=== PATIENT | male | born 1945 | race African-American/Black ===

== ENCOUNTER 2017-02-17 10:27 | Observation (INO) | payer MEDICARE, MEDICAID ==
[~2017-02-17] VITALS: Ht 175.3 cm; Wt 80.7 kg
[2017-02-17] MEDS ORDERED: SODIUM CHLORIDE 0.9% 1,000 ML IV ONE (10:39)
[2017-02-17 10:51] LABS: BASOPHILS % 0.7 % (0.0-2.0); EOSINOPHILS % 0.8 % (0.0-5.0); HEMATOCRIT. 40.9 % (42.0-52.0); HEMOGLOBIN. 12.9 g/dL (14.0-18.0); LYMPHOCYTES % 30.8 % (20.0-50.0); MEAN CORPUSCULAR HEMOGLOBIN 24.4 pg (28.0-32.0); MEAN CORPUSCULAR VOLUME 77.3 fL (80.0-94.0); MEAN PLATELET VOLUME 8.5 fl (7.4-10.4); MONOCYTES % 6.9 % (2.0-8.0); NEUTROPHILS % 60.8 % (40.0-76.0); PLATELET 172 x1000/uL (130-400); RED BLOOD CELL COUNT 5.29 mill/uL (4.7-6.1); RED CELL DISTRIBUTION WIDTH 16.6 % (11.6-14.6)
[2017-02-17 11:07] LABS: CARBON DIOXIDE 28 mEq/L (21-32); CHLORIDE 107 mEq/L (98-107); ETHANOL BLOOD 17 mg/dL; TROPONIN I < 0.02 ng/mL (0.00-0.04)
[2017-02-17] MEDS ORDERED: ASPIRIN 81MG TABLET PO ONE (11:15)
[2017-02-17] MEDS ORDERED: POTASSIUM CHLORIDE 20MEQ TABLET SR PO ONE (12:30)
[2017-02-17] MEDS ORDERED: LORAZEPAM 2MG/ML CPJ IV PRN (12:45)
[2017-02-17] MEDS ORDERED: GUAIFENESIN 200MG/10ML SUGAR FREE UDC PO PRN (12:45)
[2017-02-17] MEDS ORDERED: ACETAMINOPHEN 325MG TABLET PO PRN (12:45)
[2017-02-17] MEDS ORDERED: DOCUSATE SODIUM 100MG CAPSULE PO PRN (12:45)
[2017-02-17] MEDS ORDERED: MAGNESIUM/ALUMINUM HYDROXIDE/SIMETHICONE 30ML UDC PO PRN (12:45)
[2017-02-17] MEDS ORDERED: HYDROCODONE/ACETAMINOPHEN 5/325MG TABLET PO PRN (12:45)
[2017-02-17] MEDS ORDERED: ONDANSETRON HCL 4MG/2ML VIAL IV PRN (12:45)
[2017-02-17 13:15] LABS: *AMPHETAMINES SCREEN URINE NEGATIVE (NEGATIVE); *BARBITURATES SCREEN URINE NEGATIVE (NEGATIVE); *BENZODIAZEPINES SCREEN URINE NEGATIVE (NEGATIVE); *COCAINE SCREEN URINE NEGATIVE (NEGATIVE); CANNABINOID URINE SCREEN PRESUMTIVE POSITIVE (NEGATIVE); METHADONE URINE SCREEN NEGATIVE (NEGATIVE); OPIATES URINE SCREEN NEGATIVE (NEGATIVE); PHENCYCLIDINE URINE SCREEN NEGATIVE (NEGATIVE)
[2017-02-17 14:28] VITALS: BP 134/86
[2017-02-17 15:00] VITALS: BP 134/86
[2017-02-17 20:00] VITALS: BP 117/73
[2017-02-17] MEDS: ENOXAPARIN 80MG/0.8ML SYR SUBCUT SCH (20:56)
[2017-02-17 21:34] LABS: CREATINE KINASE 168 IU/L (39-308); CREATINE KINASE MB FRACTION 1.9 ng/mL (0.5-3.6); TROPONIN I < 0.02 ng/mL (0.00-0.04)
[2017-02-17] MEDS: SODIUM CHLORIDE 0.9% 1,000 ML IV SCH ×2 (22:37→23:35)
[2017-02-18] VITALS: BP 126/76
[2017-02-18 03:48] LABS: BASOPHILS % 1.1 % (0.0-2.0); EOSINOPHILS % 1.1 % (0.0-5.0); HEMATOCRIT. 38.8 % (42.0-52.0); HEMOGLOBIN. 12.5 g/dL (14.0-18.0); LYMPHOCYTES % 29.8 % (20.0-50.0); MEAN CORPUSCULAR HEMOGLOBIN 24.3 pg (28.0-32.0); MEAN CORPUSCULAR VOLUME 75.6 fL (80.0-94.0); MEAN PLATELET VOLUME 8.8 fl (7.4-10.4); MONOCYTES % 6.1 % (2.0-8.0); NEUTROPHILS % 61.9 % (40.0-76.0); PLATELET 161 x1000/uL (130-400); RED BLOOD CELL COUNT 5.14 mill/uL (4.7-6.1)
[2017-02-18 04:00] VITALS: BP 127/77
[2017-02-18 04:05] LABS: CARBON DIOXIDE 31 mEq/L (21-32); CHLORIDE 108 mEq/L (98-107); CREATINE KINASE 142 IU/L (39-308); CREATINE KINASE MB FRACTION 1.2 ng/mL (0.5-3.6); HDL CHOLESTEROL 71 mg/dL (40-59); LDL CHOLESTEROL 42 mg/dL (5-100); TROPONIN I < 0.02 ng/mL (0.00-0.04)
[2017-02-18 04:10] LABS: T4 FREE 0.97 ng/dL (0.76-1.46)
[2017-02-18 08:00] VITALS: BP 138/87
[2017-02-18] MEDS ORDERED: NICOTINE 21MG PATCH TD SCH (09:00)
[2017-02-18] MEDS ORDERED: ASPIRIN 81MG EC TABLET PO SCH (09:00)
[2017-02-18] MEDS: ENOXAPARIN 80MG/0.8ML SYR SUBCUT SCH (09:18)
[2017-02-18] MEDS: SODIUM CHLORIDE 0.9% 1,000 ML IV SCH (09:19)
[2017-02-18 12:00] VITALS: BP 115/71
[2017-02-18 16:00] VITALS: BP 129/84
[2017-02-18 16:58] VITALS: BP 129/84
== END 2017-02-18 18:05 | disposition home or self-care (01) ==
LOC: ER 10:45 → EDBEDREQ 12:15 → INTOOBSV 12:20 → 5WST 12:20 → ENRESERV 12:25 → 5WST 14:40
PROVIDERS: ADMIT Ophthalmology; ATTEND Ophthalmology
DX: R55 Syncope and collapse (principal); I95.1 Orthostatic hypotension; F10.10 Alcohol abuse, uncomplicated; R00.1 Bradycardia, unspecified; E87.6 Hypokalemia
CPT/HCPCS: 36415; 70450; 71010; 80053; 80061; 80305; 82550; 82553; 84439; 84443; 84484; 85025; 93005; 93970; 96360; 96361; 96372; 97161; 99285; G0378; G0482; J1650; J7030

== ENCOUNTER 2017-04-19 16:28 | Inpatient (IN) | payer MEDICARE, MEDICAID ==
[~2017-04-19] VITALS: Ht 152.4 cm; Wt 68.6 kg
[2017-04-19 18:46] LABS: BASOPHILS % 0.4 % (0.0-2.0); EOSINOPHILS % 0.3 % (0.0-5.0); HEMATOCRIT. 37.2 % (42.0-52.0); HEMOGLOBIN. 11.7 g/dL (14.0-18.0); LYMPHOCYTES % 18.9 % (20.0-50.0); MEAN CORPUSCULAR HEMOGLOBIN 24.3 pg (28.0-32.0); MEAN CORPUSCULAR VOLUME 77.5 fL (80.0-94.0); MEAN PLATELET VOLUME 8.5 fl (7.4-10.4); MONOCYTES % 4.9 % (2.0-8.0); NEUTROPHILS % 75.5 % (40.0-76.0); PLATELET 155 x1000/uL (130-400); RED CELL DISTRIBUTION WIDTH 16.2 % (11.6-14.6)
[2017-04-19 18:50] LABS: CHLORIDE 109 mEq/L (98-107)
[2017-04-19 18:51] LABS: PARTIAL THROMBOPLASTIN TIME 24.7 sec (23.4-31.0); PROTHROMBIN TIME 10.6 sec (9.4-11.6)
[2017-04-19 19:00] LABS: CARBON DIOXIDE 26 mEq/L (21-32); TROPONIN I < 0.02 ng/mL (0.00-0.04)
[2017-04-19 22:50] VITALS: BP 123/79
[2017-04-20] VITALS (7 sets, daily range): BP systolic 110–133; BP diastolic 68–79
[2017-04-20] MEDS ORDERED: ACETAMINOPHEN 650MG/20.3ML UDC PO PRN (01:00)
[2017-04-20 06:22] LABS: BASOPHILS % 0.3 % (0.0-2.0); EOSINOPHILS % 0.6 % (0.0-5.0); HEMATOCRIT. 35.7 % (42.0-52.0); HEMOGLOBIN. 11.4 g/dL (14.0-18.0); MEAN CORPUSCULAR HEMOGLOBIN 24.3 pg (28.0-32.0); MEAN CORPUSCULAR VOLUME 75.9 fL (80.0-94.0); MEAN PLATELET VOLUME 8.6 fl (7.4-10.4); MONOCYTES % 8.8 % (2.0-8.0); NEUTROPHILS % 65.3 % (40.0-76.0); PLATELET 154 x1000/uL (130-400); RED CELL DISTRIBUTION WIDTH 15.8 % (11.6-14.6)
[2017-04-20 07:08] LABS: CARBON DIOXIDE 26 mEq/L (21-32); CHLORIDE 107 mEq/L (98-107)
[2017-04-20 07:11] LABS: CREATINE KINASE MB FRACTION 1.2 ng/mL (0.5-3.6); HDL CHOLESTEROL 78 mg/dL (40-59); LDL CHOLESTEROL 60 mg/dL (5-100); TROPONIN I < 0.02 ng/mL (0.00-0.04)
[2017-04-20] MEDS ORDERED: POTASSIUM CHLORIDE 20MEQ TABLET SR PO NR (09:00)
[2017-04-20] MEDS: ASPIRIN 81MG TABLET PO SCH (09:31)
[2017-04-20] MEDS ORDERED: AMLO10TA80 PO (13:57)
[2017-04-20] MEDS ORDERED: DIVA500T51 PO (13:57)
[2017-04-20] MEDS ORDERED: TAMS0.4C31 PO (13:57)
[2017-04-20] MEDS: ENOXAPARIN 40MG/0.4ML SYR SUBCUT SCH (17:12)
[2017-04-21] VITALS: BP 138/79
[2017-04-21 04:00] VITALS: BP 135/84
[2017-04-21 08:00] VITALS: BP 137/84
[2017-04-21] MEDS: ASPIRIN 81MG TABLET PO SCH (09:16)
[2017-04-21] MEDS: ENOXAPARIN 40MG/0.4ML SYR SUBCUT SCH (09:16)
[2017-04-21] MEDS: LEVETIRACETAM 500MG TABLET PO SCH ×2 (10:29→21:45)
[2017-04-21] MEDS ORDERED: FENTANYL CITRATE/PF 50MCG/ML 2ML VIAL ONE (11:46)
[2017-04-21] MEDS ORDERED: SODIUM CHLORIDE 0.9% 10ML VIAL ONE (12:06)
[2017-04-21] MEDS ORDERED: IOHEXOL-350 100 ML BOTTLE ONE (12:06)
[2017-04-21 13:05] VITALS: BP 123/76
[2017-04-21 16:04] LABS: *AMPHETAMINES SCREEN URINE NEGATIVE (NEGATIVE); *BARBITURATES SCREEN URINE NEGATIVE (NEGATIVE); *BENZODIAZEPINES SCREEN URINE NEGATIVE (NEGATIVE); *COCAINE SCREEN URINE NEGATIVE (NEGATIVE); CANNABINOID URINE SCREEN PRESUMTIVE POSITIVE (NEGATIVE); METHADONE URINE SCREEN NEGATIVE (NEGATIVE); OPIATES URINE SCREEN NEGATIVE (NEGATIVE); PHENCYCLIDINE URINE SCREEN NEGATIVE (NEGATIVE)
[2017-04-21 16:41] VITALS: BP_SYST 114; BP_SYST 126; BP_SYST 127; BP_DIAS 63; BP_DIAS 77
[2017-04-21 20:00] VITALS: BP_SYST 128; BP_SYST 130; BP_DIAS 70; BP_DIAS 75
[2017-04-22] VITALS: BP 131/88
[2017-04-22 04:00] VITALS: BP 130/82
[2017-04-22 08:00] VITALS: BP_SYST 119; BP_SYST 120; BP_SYST 130; BP_DIAS 61; BP_DIAS 82
[2017-04-22] MEDS: LEVETIRACETAM 500MG TABLET PO SCH ×2 (09:23→20:57)
[2017-04-22] MEDS: ASPIRIN 81MG TABLET PO SCH (09:23)
[2017-04-22] MEDS: ENOXAPARIN 40MG/0.4ML SYR SUBCUT SCH (09:24)
[2017-04-22 12:00] VITALS: BP 112/60
[2017-04-22] MEDS ORDERED: POTASSIUM CHLORIDE 20MEQ TABLET SR PO NR (14:30)
[2017-04-22] MEDS ORDERED: REGADENOSON 0.4 MG/5 ML IV NR (14:30)
[2017-04-22 15:50] VITALS: BP 115/68
[2017-04-22 16:19] LABS: CARBON DIOXIDE 30 mEq/L (21-32); CHLORIDE 108 mEq/L (98-107)
[2017-04-22 20:00] VITALS: BP_SYST 112; BP_SYST 117; BP_SYST 135; BP_DIAS 77; BP_DIAS 81; BP_DIAS 84
[2017-04-23] VITALS (8 sets, daily range): BP systolic 116–149; BP diastolic 69–89
[2017-04-23 06:46] LABS: BASOPHILS % 0.5 % (0.0-2.0); EOSINOPHILS % 1.4 % (0.0-5.0); HEMATOCRIT. 34.8 % (42.0-52.0); HEMOGLOBIN. 11.3 g/dL (14.0-18.0); LYMPHOCYTES % 29.4 % (20.0-50.0); MEAN CORPUSCULAR HEMOGLOBIN 24.6 pg (28.0-32.0); MEAN CORPUSCULAR VOLUME 75.7 fL (80.0-94.0); MONOCYTES % 10.3 % (2.0-8.0); NEUTROPHILS % 58.4 % (40.0-76.0); PLATELET 147 x1000/uL (130-400); RED CELL DISTRIBUTION WIDTH 15.5 % (11.6-14.6)
[2017-04-23 08:36] LABS: CARBON DIOXIDE 29 mEq/L (21-32); CHLORIDE 107 mEq/L (98-107); TROPONIN I < 0.02 ng/mL (0.00-0.04)
[2017-04-23] MEDS: ENOXAPARIN 40MG/0.4ML SYR SUBCUT SCH (08:45)
[2017-04-23] MEDS: LEVETIRACETAM 500MG TABLET PO SCH (08:45)
[2017-04-23] MEDS: ASPIRIN 81MG TABLET PO SCH (08:45)
[2017-04-23] MEDS ORDERED: REGADENOSON 0.4 MG/5 ML IV ONE (09:48)
== END 2017-04-23 19:14 | disposition home or self-care (01) | DRG 101 ==
LOC: ER 16:48 → 6EST 21:03 → INTOOBSV 21:03 → OBSVTOIN 21:03 → EDBEDREQSVC 21:09 → EDBEDREQ 21:09 → ENRESERV 21:14 → 7WST 04-20 01:15
PROVIDERS: ADMIT Internal Medicine; ATTEND Internal Medicine
DX: R56.9 Unspecified convulsions (principal); F03.90 Unspecified dementia, unspecified severity, without behavioral disturbance, psychotic disturbance, mood disturbance, and anxiety; R55 Syncope and collapse; I10 Essential (primary) hypertension; N40.0 Benign prostatic hyperplasia without lower urinary tract symptoms; E87.6 Hypokalemia; E66.9 Obesity, unspecified; F17.210 Nicotine dependence, cigarettes, uncomplicated; Z86.79 Personal history of other diseases of the circulatory system; Z68.29 Body mass index [BMI] 29.0-29.9, adult
CPT/HCPCS: 36415; 70450; 70496; 71010; 78452; 80048; 80053; 80061; 80305; 82553; 83690; 84484; 85025; 85610; 85730; 93005; 93017; 93306; 93880; 97162; 97166; 99285; A4216; A9500; G0482; J1650; J2785; J3010; Q9967